=== PATIENT | female | born 1965 | race Caucasian/White ===

== ENCOUNTER 2017-11-29 22:29 | Emergency (ER) | payer BC, MEDICARE ==
[2017-11-30] MEDS: LORAZEPAM 2 MG INJ IV (00:17)
[2017-11-30] MEDS: FENTAnyl 50 MCG/ML VIAL IV (00:17)
[2017-11-30] MEDS: morphine 4 MG/ML VIAL IV (01:29)
== END 2017-11-30 01:50 | disposition home or self-care (01) ==
LOC: FTE 11-30 01:50
DX: S06.0X1A Concussion with loss of consciousness of 30 minutes or less, initial encounter (principal); S00.03XA Contusion of scalp, initial encounter; S16.1XXA Strain of muscle, fascia and tendon at neck level, initial encounter; F41.9 Anxiety disorder, unspecified; W06.XXXA Fall from bed, initial encounter; Y92.9 Unspecified place or not applicable
CPT/HCPCS: 70450; 72125; 96374; 96375; 99285-25

== ENCOUNTER 2017-12-21 23:41 | Emergency (ER) | payer BC, MEDICARE ==
[2017-12-22] MEDS: LORAZEPAM 2 MG INJ IV (00:46)
[2017-12-22] MEDS: ONDANSETRON 4 MG INJ IV (00:46)
[2017-12-22] MEDS: SOD CHLORIDE 0.9% 500 ML IV (00:46)
[2017-12-22] MEDS: KETOROLAC 15 MG INJ IV (00:46)
[2017-12-22 01:24] LABS: ADD MAN DIFF? NO
[2017-12-22 01:27] LABS: EOSINOPHILS % 0.2 % (0.0-7.0); HEMATOCRIT 35.2 % (37.0-47.0); HEMOGLOBIN 12.3 g/dl (12.0-16.0); LYMPHOCYTES # 1.2 10^3/ul (0.8-2.9); LYMPHOCYTES % 27.8 % (15.0-51.0); MEAN CORPUSCULAR HEMOGLOBIN 30.1 pg (29.0-33.0); MEAN CORPUSCULAR HGB CONC 34.9 g/dl (32.0-37.0); MEAN CORPUSCULAR VOLUME 86.3 fl (82.0-101.0); MEAN PLATELET VOLUME 10.1 fl (7.4-10.4); MONOCYTE # 0.7 10^3/ul (0.3-0.9); NEUTROPHIL # 2.4 10^3/ul (1.6-7.5); NEUTROPHILS % 55.5 % (39.0-77.0); PLATELET COUNT 225 10^3/UL (140-415); RED BLOOD COUNT 4.08 10^6/ul (4.20-5.40); RED CELL DISTRIBUTION WIDTH 12.7 % (11.5-14.5)
[2017-12-22 01:27] LABS: WHITE BLOOD COUNT 4.3 10^3/ul (4.8-10.8)
[2017-12-22 01:40] LABS: ADD UMIC NO; UR ASCORBIC ACID NEGATIVE (NEGATIVE); UR BILIRUBIN (Dip) NEGATIVE (NEGATIVE); UR BLOOD (Dip) NEGATIVE (NEGATIVE); UR CLARITY CLEAR (CLEAR); UR COLOR YELLOW (YELLOW); UR GLUCOSE (Dip) NEGATIVE (NEGATIVE); UR KETONES (Dip) NEGATIVE (NEGATIVE); UR LEUKOCYTE ESTERASE (Dip) NEGATIVE Leu/ul (NEGATIVE); UR NITRITE (Dip) NEGATIVE (NEGATIVE); UR TOTAL PROTEIN (Dip) NEGATIVE (NEGATIVE); UR UROBILINOGEN (Dip) NEGATIVE (NEGATIVE)
[2017-12-22 01:48] LABS: ALANINE AMINOTRANSFERASE 16 IU/L (13-69); ALBUMIN 3.4 g/dl (3.3-4.9); ALBUMIN/GLOBULIN RATIO 1.17; ALKALINE PHOSPHATASE 75 IU/L (42-121); ANION GAP 11 (8-16); ASPARTATE AMINO TRANSFERASE 18 IU/L (15-46); BILIRUBIN,INDIRECT 0.1 mg/dl (0-1.1); BILIRUBIN,TOTAL 0.1 mg/dl (0.2-1.3); BLOOD UREA NITROGEN 8 mg/dl (7-20); CALCIUM 9.1 mg/dl (8.4-10.2); CARBON DIOXIDE 26 mmol/L (21-31); CHLORIDE 106 mmol/L (97-110); CREATININE 0.52 mg/dl (0.44-1.00); GLUCOSE 91 mg/dl (70-220); LIPASE 134 U/L (23-300); POTASSIUM 3.8 mmol/L (3.5-5.1); SODIUM 139 mmol/L (135-144); TOTAL PROTEIN 6.3 g/dl (6.1-8.1)
[2017-12-22 02:00] LABS: TROPONIN-I 0.016 ng/ml (0.000-0.120)
[2017-12-22] MEDS: HYDROmorphONE 1 MG/5 ML IV SYRINGE IV (02:13)
== END 2017-12-22 03:38 | disposition home or self-care (01) ==
LOC: E/R 23:41
DX: F41.9 Anxiety disorder, unspecified (principal); G44.209 Tension-type headache, unspecified, not intractable
CPT/HCPCS: 36415; 71045; 80053; 81003; 83690; 84484; 85025; 93005; 96374; 96375; 99284-25

== ENCOUNTER 2018-04-30 11:12 | Emergency (ER) | payer BC, MEDICARE ==
[2018-04-30] MEDS: METOCLOPRAMIDE 10 MG INJ IV (12:12)
[2018-04-30] MEDS: DIPHENHYDRAMINE 50 MG INJ IV (12:13)
[2018-04-30] MEDS: SOD CHLORIDE 0.9% 1,000 ML IV (12:13)
[2018-04-30 12:17] LABS: URINE BLOOD (Dip) POC Negative (NEGATIVE); URINE GLUCOSE (Dip) POC Negative (NEGATIVE); URINE KETONES (Dip) POC Negative (NEGATIVE); URINE LEUKOCYTE EST (Dip) POC Trace (NEGATIVE); URINE NITRITE (Dip) POC Negative (NEGATIVE); URINE TOTAL PROTEIN POC Negative (NEGATIVE)
[2018-04-30 12:17] LABS: URINE PH (Dip) POC 7.5 (5.0-8.5)
[2018-04-30 12:29] LABS: ADD MAN DIFF? NO
[2018-04-30 12:32] LABS: WHITE BLOOD COUNT 4.6 10^3/ul (4.8-10.8)
[2018-04-30 12:32] LABS: EOSINOPHILS % 0.2 % (0.0-7.0); HEMATOCRIT 35.5 % (37.0-47.0); HEMOGLOBIN 11.4 g/dl (12.0-16.0); LYMPHOCYTES # 1.3 10^3/ul (0.8-2.9); MEAN CORPUSCULAR HEMOGLOBIN 28.7 pg (29.0-33.0); MEAN CORPUSCULAR HGB CONC 32.1 g/dl (32.0-37.0); MEAN CORPUSCULAR VOLUME 89.4 fl (82.0-101.0); MEAN PLATELET VOLUME 9.9 fl (7.4-10.4); MONOCYTE # 0.7 10^3/ul (0.3-0.9); NEUTROPHIL # 2.6 10^3/ul (1.6-7.5); NEUTROPHILS % 56.6 % (39.0-77.0); PLATELET COUNT 226 10^3/UL (140-415); RED BLOOD COUNT 3.97 10^6/ul (4.20-5.40); RED CELL DISTRIBUTION WIDTH 12.3 % (11.5-14.5)
[2018-04-30 12:51] LABS: ANION GAP 11 (8-16); BLOOD UREA NITROGEN 4 mg/dl (7-20); CALCIUM 9.3 mg/dl (8.4-10.2); CARBON DIOXIDE 34 mmol/L (21-31); CHLORIDE 100 mmol/L (97-110); CREATININE 0.52 mg/dl (0.44-1.00); GLUCOSE 85 mg/dl (70-220); POTASSIUM 4.4 mmol/L (3.5-5.1); SODIUM 141 mmol/L (135-144)
[2018-04-30] MEDS: KETOROLAC 30 MG INJ IV (13:38)
== END 2018-04-30 14:08 | disposition home or self-care (01) ==
LOC: FTE 11:12
DX: R51 Headache (principal); D64.9 Anemia, unspecified
CPT/HCPCS: 36415; 70450; 80048; 81003; 81025; 85025; 96361; 96374; 96375; 99285-25

== ENCOUNTER 2018-10-14 17:27 | Emergency (ER) | payer BC, MEDICARE ==
[2018-10-14] MEDS: IBUPROFEN 600 MG TAB PO (20:56)
== END 2018-10-14 22:56 | disposition home or self-care (01) ==
LOC: FTE 22:56
DX: S82.891A Other fracture of right lower leg, initial encounter for closed fracture (principal); S90.122A Contusion of left lesser toe(s) without damage to nail, initial encounter; S63.501A Unspecified sprain of right wrist, initial encounter; W18.30XA Fall on same level, unspecified, initial encounter; Y92.9 Unspecified place or not applicable
CPT/HCPCS: 73110; 73110-RT; 73610-RT; 73630-LT; 99284-25